=== PATIENT | male | born 1965 | race Caucasian/White ===

== ENCOUNTER 2023-07-05 07:30 | Inpatient (IN) ==
[2023-07-05] MEDS: NOZIN NASAL SANITIZER TP ONE (08:35)
[2023-07-05] MEDS: LR 1,000 ML IV 1,000 ML IV ONE (08:36)
[2023-07-05] MEDS: DUONEB 0.5 MG/3 MG (3 mL) NEB ONE (11:20)
[2023-07-05] MEDS: NS 1,000 ML IV 1,000 ML ONE (12:56)
[2023-07-05] MEDS: NEO-SYNEPHRINE INJ ONE (13:41)
[2023-07-05] MEDS: NS 100 ML IV 100 ML ONE (13:41)
[2023-07-05] MEDS: EPHEDRINE SULFATE INJ ONE (13:41)
[2023-07-05] MEDS: VERSED ONE ×2 (13:41)
[2023-07-05] MEDS: PEPCID 20 MG VIAL ONE (13:41)
[2023-07-05] MEDS: BRIDION ONE (13:41)
[2023-07-05] MEDS: ZOFRAN INJ 4 MG VIAL ONE (13:41)
[2023-07-05] MEDS: NS 500 ML IV 500 ML IV ONE ×3 (13:41→14:09)
[2023-07-05] MEDS: DIPRIVAN VIAL 20 ML ONE (13:41)
[2023-07-05] MEDS ORDERED: SUPRANE ONE (13:41)
[2023-07-05] MEDS: ANCEF VIAL 1 GRAM ONE (13:41)
[2023-07-05] MEDS: SUPRANE ONE (13:41)
[2023-07-05] MEDS: ZEMURON 100 MG VIAL ONE (13:41)
[2023-07-05] MEDS ORDERED: XYLOCAINE 2 % (PLAIN) ONE (13:41)
[2023-07-05] MEDS: FENTANYL VIAL INJ 100 mcg ONE ×3 (13:41→14:12)
[2023-07-05] MEDS ORDERED: NS IRRIGATION* 500 ML IR ONE (14:08)
[2023-07-05] MEDS: HEPARIN SODIUM INJ 5000 UNITS ONE ×2 (14:09→14:44)
[2023-07-05] MEDS: ROBINUL ONE (14:21)
[2023-07-05] MEDS: PROTAMINE SULFATE 50 MG VIAL ONE (15:30)
[2023-07-05] MEDS: DILAUDID INJ ONE ×2 (16:09→16:57)
[2023-07-05] MEDS: DILAUDID INJ IVP PRN ×2 (16:14→20:38)
[2023-07-05] MEDS ORDERED: PERCOCET TAB 5/325 MG PO PRN (16:15)
--- NOTE | 2023-07-05 16:15 | OR.IMMED ---
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 Post Hospital Plans and Medications: Continue all home meds including Brilinta and aspirin.
[2023-07-05] MEDS ORDERED: ZOFRAN INJ 4 MG VIAL IVP PRN (16:24)
[2023-07-05] MEDS ORDERED: BENADRYL INJ 50 MG VIAL IVP PRN (16:24)
[2023-07-05] MEDS ORDERED: BARHEMSYS INJ IVP PRN (16:24)
[2023-07-05] MEDS ORDERED: REGLAN INJ 10 MG VIAL IVP PRN (16:24)
[2023-07-05] MEDS: DILAUDID INJ IVP ONE (16:56)
[2023-07-05] MEDS ORDERED: LR 1,000 ML IV 1,000 ML IV ONE (16:57)
[2023-07-05] MEDS ORDERED: OFIRMEV IV 1000 MG VIAL 1,000 MG/100 ML VIAL IV ONE (17:45)
[2023-07-05] MEDS: TYLENOL 325 MG TAB PO ONE ×2 (17:47→18:08)
[2023-07-05] MEDS: OFIRMEV IV 1000 MG VIAL 1,000 MG/100 ML VIAL IV PRN (17:48)
[2023-07-05] MEDS: LR 1,000 ML IV 1,000 ML IV SCH (18:06)
[2023-07-05] MEDS: NEURONTIN CAP 400 MG PO SCH (18:07)
[2023-07-05] MEDS: LOPRESSOR TAB 50 MG PO SCH (20:19)
[2023-07-05] MEDS: BRILINTA PO SCH (20:19)
[2023-07-05] MEDS: BENTYL CAP 10 MG PO SCH (20:19)
[2023-07-05] MEDS: PROVENTIL NEB TX 0.083% 2.5MG/ 3ML NEB SCH (20:50)
[2023-07-06] MEDS: ATIVAN INJ 2 MG VIAL IVP ONE (04:06)
[2023-07-06] MEDS: PROVENTIL NEB TX 0.083% 2.5MG/ 3ML ONE (07:21)
[2023-07-06] MEDS ORDERED: ATIVAN 20 MG/10 ML VIAL IVP PRN (07:35)
[2023-07-06] MEDS: ATIVAN INJ 2 MG VIAL IVP PRN (08:01)
[2023-07-06] MEDS: PHARMACY CONSULT - LOVENOX XX SCH (08:01)
[2023-07-06 08:16] LABS: RED BLOOD COUNT 4.13 X10^6/uL (4.7-6.0); RED CELL DISTRIBUTION WIDTH 13.9 % (11.6-16.5)
[2023-07-06 08:19] LABS: BASOPHILS # (AUTO) 0.1 X10^3/uL (0.0-0.1); BASOPHILS % (AUTO) 0.8 % (0.2-1.0); EOSINOPHILS # (AUTO) 0.1 x10^3/uL (0.0-0.2); EOSINOPHILS % (AUTO) 0.8 % (0.9-2.9); HEMATOCRIT 35.9 % (42.0-54.0); HEMOGLOBIN 12.1 g/dL (13.5-18.0); LYMPHOCYTES # (AUTO) 2.3 X10^3/uL (1.3-2.9); LYMPHOCYTES % (AUTO) 21.1 % (21.0-51.0); MEAN CORPUSCULAR HEMOGLOBIN 29.3 pg (27.0-34.0); MEAN CORPUSCULAR HGB CONC 33.7 g/dL (33.0-35.0); MEAN CORPUSCULAR VOLUME 86.8 fL (80.0-100.0); MEAN PLATELET VOLUME 10.6 fL (7.4-11.0); MONOCYTES # (AUTO) 1.2 x10^3/uL (0.3-0.8); MONOCYTES % (AUTO) 10.6 % (0.0-13.0); NEUTROPHILS # (AUTO) 7.2 x10^3/uL (2.2-4.8); NEUTROPHILS % (AUTO) 66.7 % (42.0-75.0); PLATELET COUNT 182 X10^3/uL (150.0-450.0); WHITE BLOOD COUNT 10.8 X10^3/uL (3.6-10.0)
[2023-07-06 08:29] LABS: ALANINE AMINOTRANSFERASE 28 Units/L (12-78); ALBUMIN 3.1 g/dL (3.4-5.0); ALKALINE PHOSPHATASE 96 Units/L (46-116); ASPARTATE AMINO TRANSFERASE 22 Units/L (15-37); BLOOD UREA NITROGEN 12 mg/dL (7-18); CALCIUM 8.4 mg/dL (8.5-10.1); CARBON DIOXIDE 28.9 mmol/L (21-32); CHLORIDE 101 mmol/L (98-107); COR CA(FOR HYPOALB) 9.1 mg/dL (8.5-10.1); COR NA(FOR HYPERGLY) 140 mmol/L (136-145); CREATININE 0.92 mg/dL (0.70-1.30); GLUCOSE 186 mg/dL (65-99); POTASSIUM 3.9 mmol/L (3.5-5.1); SODIUM 138 mmol/L (136-145); eGFR NON BLACK RACES > 60 (>60)
[2023-07-06] MEDS: LOVENOX INJ 40 MG SYR SC SCH (09:44)
[2023-07-06] MEDS: PROTONIX INJ 40 MG VIAL IVP SCH (09:45)
[2023-07-06] MEDS: LOPRESSOR INJ 5 MG AMP IVP SCH (09:45)
[2023-07-06] MEDS: LASIX IVP SCH (09:45)
--- NOTE | 2023-07-06 23:42 | NOTE.SOAP ---
Soap Note Note for Day of Date of Exam: 07/06/23 Subjective Data Subjective Data: POD #1 after right carotid endarterectomy . On Brillinta and aspirin. Had some bleeding into incision. Anxious , c/o difficulty swallowing Objective Data Pulse Rate: 116 Respiratory Rate: 22 Blood Pressure: 149/79 O2 Sat by Pulse Oximetry: 99 Objective Data: No neurological deficits . Mild ecchymosis in right neck Assessment Assessment: pod #1 right CEA with some mild bleeding and some difficulty swallowing . Plan Plan: Patient too anxious for swallowing test. Will re-evaluate in AM.
[2023-07-07] MEDS ORDERED: NovoLIN R (or HumuLIN R) SUBCUT PRN (15:45)
[2023-07-07] MEDS ORDERED: DEXTROSE 10% 1,000 ML IV PRN (15:45)
[2023-07-07] MEDS ORDERED: PHARMACY CONSULT - TPN XX SCH (16:00)
[2023-07-07] MEDS: DRUG FILTER EXTENSION SET ONE (16:31)
[2023-07-07] MEDS: CLINIMIX 4.25%-5% 1,000 ML with MVI INJ (ADULT) 10 ML IV SCH (16:31)
--- NOTE | 2023-07-07 17:44 | NOTE.SOAP ---
Soap Note Note for Day of Date of Exam: 07/07/23 Subjective Data Subjective Data: Through the day has felt less anxious. Swallowing better .Swallowing steady performed and results were excellent .Patient started on puree diet with plans to advance to soft mechanical diet in the morning Objective Data Pulse Rate: 110 Respiratory Rate: 16 Blood Pressure: 139/74 O2 Sat by Pulse Oximetry: 98 Objective Data: Swelling of neck subsiding . Anderson pulling eechymosis onto chest . Swallowing study as above . Hgb=12.1, Cr=0.92 Assessment Assessment: POD # 2 after right carotid endarterectomy, no neurolgical deficits . Started on PPN and puree diet . Plan Plan: As above. When swallowing better will d/c home
[2023-07-07] MEDS: PROVENTIL NEB TX 0.083% 2.5MG/ 3ML NEB SCH (21:15)
[2023-07-08 05:08] LABS: BASOPHILS % (AUTO) 0.5 % (0.2-1.0); EOSINOPHILS # (AUTO) 0.1 x10^3/uL (0.0-0.2); EOSINOPHILS % (AUTO) 1.8 % (0.9-2.9); HEMATOCRIT 29.3 % (42.0-54.0); LYMPHOCYTES # (AUTO) 1.2 X10^3/uL (1.3-2.9); LYMPHOCYTES % (AUTO) 15.1 % (21.0-51.0); MEAN CORPUSCULAR HEMOGLOBIN 29.6 pg (27.0-34.0); MEAN CORPUSCULAR HGB CONC 34.1 g/dL (33.0-35.0); MEAN CORPUSCULAR VOLUME 86.9 fL (80.0-100.0); MEAN PLATELET VOLUME 10.5 fL (7.4-11.0); MONOCYTES # (AUTO) 0.9 x10^3/uL (0.3-0.8); MONOCYTES % (AUTO) 11.5 % (0.0-13.0); NEUTROPHILS # (AUTO) 5.8 x10^3/uL (2.2-4.8); NEUTROPHILS % (AUTO) 71.1 % (42.0-75.0); PLATELET COUNT 164 X10^3/uL (150.0-450.0); RED BLOOD COUNT 3.38 X10^6/uL (4.7-6.0); RED CELL DISTRIBUTION WIDTH 13.3 % (11.6-16.5); WHITE BLOOD COUNT 8.2 X10^3/uL (3.6-10.0)
[2023-07-08 05:12] LABS: MAGNESIUM 1.5 mg/dL (2.0-2.9); PHOSPHORUS 2.9 mg/dL (2.6-4.7)
[2023-07-08 06:03] LABS: PREALBUMIN 15.2 mg/dL (18-35.7)
--- NOTE | 2023-07-08 14:07 | NOTE.SOAP ---
Soap Note Note for Day of Date of Exam: 07/08/23 Subjective Data Subjective Data: POD# 3 after right carotid endarterectomy with patch angioplasty. Had some bleeding in right neck incision as patient on Brillinta which could not be stopped. Hgb is stable at 10 grms . Has had difficulty swallowing which is slowly improving . Swallowing test OK. Placed on soft mechanical diet this AM. Less anxiety Objective Data Pulse Rate: 94 Respiratory Rate: 20 Blood Pressure: 108/61 O2 Sat by Pulse Oximetry: 96 Objective Data: Swelling of neck improved . Ecchymosis extending onto chest with gravity. HgB=10.0 Assessment Assessment: POD # 3 after left CEA with patch, no neurological deficits , difficulty swallowing improving as is hematoma right neck Plan Plan: as above , Continue PPN
[2023-07-08] MEDS: XYLOCAINE VISCOUS MT PRN (20:07)
[2023-07-09] MEDS: XYLOCAINE VISCOUS ONE (08:26)
[2023-07-09 08:34] VITALS: BMI 29.3
--- NOTE | 2023-07-09 17:23 | NOTE.SOAP ---
Soap Note Note for Day of Date of Exam: 07/09/23 Subjective Data Subjective Data: S/P right carotid endarterectomy with some right neck swelling and difficulty swallowing . Now tolerating a soft diet and will get him back on his po medications Objective Data Pulse Rate: 101 Respiratory Rate: 22 Blood Pressure: 117/65 Objective Data: Swelling right neck nearly resolved. Ecchymosis onto chest. Assessment Assessment: POD after right CEA , as above Plan Plan: Plan discharge home tomorrow.
[2023-07-09] MEDS: PERCOCET TAB 5/325 MG PO PRN (20:34)
[2023-07-09] MEDS: MIRALAX POWDER (1 DOSE 17 G) PO SCH (20:35)
[2023-07-09] MEDS: CITROMA PO ONE (20:36)
[2023-07-10] MEDS: PROTONIX TAB 40 MG PO SCH (08:46)
[2023-07-10] MEDS: LIPITOR TAB 40 MG PO SCH (08:46)
[2023-07-10] MEDS: ASPIRIN EC 81 MG PO SCH (08:46)
[2023-07-10] MEDS: HYDROCHLOROTHIAZIDE 25 MG TAB PO SCH (09:48)
--- NOTE | 2023-07-10 12:26 | DR.OPNOTE ---
OP NOTE Pre-Op Diagnosis: severe stenosis > 80 % right internal carotid artery Post-Op Diagnosis: same Procedure Date Date Of Procedure: 07/05/23 Procedure: PROCEDURE: RIGHT CAROTID ENDARTERECTOMY AND PATCH ANGIOPLASTY NARRATIVE: The patient was taken to the operative suite and placed in the supine position. General endotracheal anesthesia induced .The right neck was extended ,prepped and draped in sterile fashion .Timeout for the procedure obtained .Incision was made along the anterior border of the right sternocletomastoid muscle extended through the platysma muscle . The sternocletomastoid muscle retracted laterally and dissection carried down dividing the facial vein between ties of 3-0 silk .The carotid artery dissected and vessels placed around the common carotid artery ,the external carotid artery and the internal carotid artery above the plaque ,a 3-0 silk suture was placed as a tie around the superior thyroid artery . Patient was given 5,000 units of intravenous heparin and after 3 minutes all branches of the carotid artery were clamped .The common carotid artery opened with a number 11 knife blade and Pott's scissors through the plaque into normal internal carotid artery and a 12 [place] shunt placed distally and held in position with vessel loops and then proximally and held in position with vessel Loops. [place] dissector used to perform endarterectomy and the plaque divided in the common carotid artery and feathered into the internal carotid artery performing eversion endarterectomy of the external carotid artery removing all of the plaque .All floating material removed . The artery was then closed using an 8 millimeter wide bovine pericardial patch sewing it into position with running 5-0 Prolene suture. Before the patch was completely closed the shunt was removed and each branch of the arterey clamped or occluded with vessel loops .Closure of the patch completed. Clamp removed from the common carotid artery and the vessel loops were loosened from the external carotid artery and internal carotid artery in that order re- establishing flow. There was one area of leaking from the patch which was closed with a figure of 8 suture of 5-0 Prolene. Patient given 20 milligram of intravenous Protamine .Surgicel placed over the carotid artery and when bleeding from the suture line had stopped the area irrigated .Platysma closed with running 3-0 Vicryl suture .Skin closed with running 5-0 Vicryl suture in a subcuticular fashion and Silver based dressing appled to the incision . Patient extubated and had no neurological deficits .Patient taken to the recovery room prior to transfer to the ICU . Type of Anesthesia: General Anesthetic w/ETT Findings: as above Specimen/Pathology: carotid artery plaque Type of Fluids Used:: Lactated Ringers EBL: 150 cc Complications:: none Needle/Sponge Count:: correct Disposition/Condition: Pt. tolerated procedure without difficulty. Extubated in the OR and taken to PACU in stable condition.
[2023-07-10 12:28] VITALS: TEMP 97.4
[2023-07-10 16:03] VITALS: PULSE 79
--- NOTE | 2023-07-10 17:36 | W.DIS.FURT ---
Summary of Discharge Discharge Summary of Date Date of Exam: 07/10/23 Admission Date Date of Admission: 07/05/23 Admission Diagnosis Hospital Course: This is 58 year old male with known right carotid artery stenosis , greater than 80% stenosis of the right internal carotid artery and history of coronary artery disease. Patient underwent right carotid endarterectomy with patch angioplasty on July 05 2023 .Patient had recent coronary stents and was maintained on Brillinta and aspirin which was not stopped for surgery as planned. Patient developed swelling of the right neck which did not require repeat surgery. Initially the patient had difficulty swallowing.Swallowing studies were normal. Patient now swallowing a soft diet and all of his medications including pills .He will be discharged home today on his usual medications including the Brillinta and aspirin .He will be given a prescription for Percocet 5 milligram tablets, 1 every 6 hours PRN pain and he will follow up with me on July 18 . Vital Signs: Vital Signs (72 hours) 07/07/23 17:43 07/09/23 17:22 07/08/23 14:07 Temperature Pulse Rate 110 H 101 H 94 H Respiratory Rate 16 22 20 Blood Pressure 139/74 117/65 108/61 O2 Sat by Pulse Oximetry 98 96 Oxygen Delivery Method Oxygen Flow Rate FIO2% 07/07/23 18:00 07/07/23 18:00 07/07/23 19:00 Temperature Pulse Rate 111 H Respiratory Rate 16 Blood Pressure 133/78 O2 Sat by Pulse Oximetry 96 Oxygen Delivery Method Nasal Cannula Oxygen Flow Rate 2 FIO2% 07/07/23 19:00 07/07/23 19:09 07/07/23 19:09 Temperature Pulse Rate 107 H 110 H Respiratory Rate 16 16 Blood Pressure 129/58 O2 Sat by Pulse Oximetry 97 97 Oxygen Delivery Method Oxygen Flow Rate FIO2% 07/07/23 20:19 07/07/23 21:13 07/07/23 20:49 Temperature Pulse Rate Respiratory Rate 16 13 Blood Pressure 130/77 O2 Sat by Pulse Oximetry Oxygen Delivery Method Oxygen Flow Rate FIO2% 07/07/23 20:00 07/07/23 20:00 07/07/23 21:00 Temperature 99.3 F Pulse Rate 110 H 98 H Respiratory Rate 15 15 Blood Pressure 127/63 O2 Sat by Pulse Oximetry 98 97 Oxygen Delivery Method Oxygen Flow Rate FIO2% 07/07/23 21:00 07/07/23 22:00 07/07/23 22:00 Temperature Pulse Rate 88 Respiratory Rate 14 Blood Pressure 130/77 117/65 O2 Sat by Pulse Oximetry 97 Oxygen Delivery Method Oxygen Flow Rate FIO2% 07/07/23 23:00 07/07/23 23:00 07/08/23 00:00 Temperature 98.6 F Pulse Rate 95 H 92 H Respiratory Rate 13 15 Blood Pressure 119/58 O2 Sat by Pulse Oximetry 98 96 Oxygen Delivery Method Oxygen Flow Rate FIO2% 07/08/23 00:00 07/08/23 01:00 07/08/23 01:00 Temperature Pulse Rate 89 Respiratory Rate 14 Blood Pressure 123/60 118/57 O2 Sat by Pulse Oximetry 96 Oxygen Delivery Method Oxygen Flow Rate FIO2% 07/08/23 02:00 07/08/23 02:00 07/07/23 21:15 Temperature Pulse Rate 91 H Respiratory Rate 27 H Blood Pressure 124/57 O2 Sat by Pulse Oximetry 96 Oxygen Delivery Method Room Air Oxygen Flow Rate FIO2% 21 07/07/23 21:15 07/08/23 03:09 07/08/23 03:39 Temperature Pulse Rate 94 H Respiratory Rate 22 18 Blood Pressure O2 Sat by Pulse Oximetry 99 Oxygen Delivery Method Oxygen Flow Rate FIO2% 07/08/23 03:00 07/08/23 03:00 07/08/23 04:00 Temperature 98.5 F Pulse Rate 97 H Respiratory Rate 24 Blood Pressure 117/62 114/56 O2 Sat by Pulse Oximetry 93 L Oxygen Delivery Method Oxygen Flow Rate FIO2% 07/08/23 04:00 07/08/23 05:00 07/08/23 05:00 Temperature Pulse Rate 85 83 Respiratory Rate 13 13 Blood Pressure 114/66 O2 Sat by Pulse Oximetry 95 94 L Oxygen Delivery Method Oxygen Flow Rate FIO2% 07/08/23 06:00 07/08/23 06:00 07/08/23 08:27 Temperature Pulse Rate 78 Respiratory Rate 14 Blood Pressure 121/71 O2 Sat by Pulse Oximetry 96 Oxygen Delivery Method Room Air Oxygen Flow Rate FIO2% 07/08/23 08:27 07/08/23 08:27 07/08/23 08:27 Temperature Pulse Rate 100 H 102 H Respiratory Rate Blood Pressure O2 Sat by Pulse Oximetry 99 98 Oxygen Delivery Method Nasal Cannula Oxygen Flow Rate 2 FIO2% 21 07/08/23 07:00 07/08/23 07:00 07/08/23 07:00 Temperature Pulse Rate 89 Respiratory Rate 13 Blood Pressure 114/62 O2 Sat by Pulse Oximetry 97 Oxygen Delivery Method Nasal Cannula Oxygen Flow Rate 2 FIO2% 07/08/23 08:00 07/08/23 08:00 07/08/23 09:00 Temperature 98.2 F Pulse Rate 85 105 H Respiratory Rate 16 18 Blood Pressure 134/64 O2 Sat by Pulse Oximetry 96 95 Oxygen Delivery Method Oxygen Flow Rate FIO2% 07/08/23 09:01 07/08/23 09:01 07/08/23 10:00 Temperature Pulse Rate 105 H Respiratory Rate 20 Blood Pressure 149/70 154/81 O2 Sat by Pulse Oximetry 97 Oxygen Delivery Method Oxygen Flow Rate FIO2% 07/08/23 10:00 07/08/23 11:00 07/08/23 11:00 Temperature Pulse Rate 87 100 H Respiratory Rate 25 H 14 Blood Pressure 104/58 O2 Sat by Pulse Oximetry 97 98 Oxygen Delivery Method Oxygen Flow Rate FIO2% 07/08/23 12:00 07/08/23 12:00 07/08/23 13:00 Temperature Pulse Rate 94 H Respiratory Rate 20 Blood Pressure 108/61 116/72 O2 Sat by Pulse Oximetry 96 Oxygen Delivery Method Oxygen Flow Rate FIO2% 07/08/23 13:00 07/08/23 13:00 07/08/23 14:00 Temperature Pulse Rate 101 H Respiratory Rate 15 Blood Pressure 116/72 133/65 O2 Sat by Pulse Oximetry 99 Oxygen Delivery Method Oxygen Flow Rate FIO2% 07/08/23 14:00 07/08/23 15:00 07/08/23 15:00 Temperature Pulse Rate 106 H 97 H Respiratory Rate 20 14 Blood Pressure 116/66 O2 Sat by Pulse Oximetry 98 95 Oxygen Delivery Method Oxygen Flow Rate FIO2% 07/08/23 16:00 07/08/23 16:08 07/08/23 16:08 Temperature Pulse Rate 109 H 102 H Respiratory Rate 10 L 9 L Blood Pressure 119/71 O2 Sat by Pulse Oximetry 99 98 Oxygen Delivery Method Oxygen Flow Rate FIO2% 07/08/23 17:00 07/08/23 17:00 07/08/23 18:00 Temperature 98.3 F Pulse Rate 115 H 116 H Respiratory Rate 17 31 H Blood Pressure 128/73 O2 Sat by Pulse Oximetry 98 94 L Oxygen Delivery Method Oxygen Flow Rate FIO2% 07/08/23 18:00 07/08/23 19:00 07/08/23 19:00 Temperature Pulse Rate 112 H Respiratory Rate 16 Blood Pressure 119/57 O2 Sat by Pulse Oximetry 97 Oxygen Delivery Method Nasal Cannula Oxygen Flow Rate 2 FIO2% 07/08/23 19:00 07/08/23 20:00 07/08/23 20:01 Temperature Pulse Rate 117 H Respiratory Rate 21 Blood Pressure 122/69 125/60 O2 Sat by Pulse Oximetry 97 Oxygen Delivery Method Oxygen Flow Rate FIO2% 07/08/23 20:01 07/08/23 20:26 07/08/23 21:00 Temperature 99.3 F Pulse Rate 129 H Respiratory Rate 33 H Blood Pressure 116/71 O2 Sat by Pulse Oximetry 97 Oxygen Delivery Method Room Air Oxygen Flow Rate FIO2% 07/08/23 21:00 07/08/23 21:23 07/08/23 22:00 Temperature Pulse Rate 103 H Respiratory Rate 6 L Blood Pressure 122/80 115/69 O2 Sat by Pulse Oximetry 96 Oxygen Delivery Method Oxygen Flow Rate FIO2% 07/08/23 22:00 07/08/23 23:00 07/08/23 23:00 Temperature Pulse Rate 101 H 106 H Respiratory Rate 34 H 20 Blood Pressure 126/76 O2 Sat by Pulse Oximetry 97 99 Oxygen Delivery Method Oxygen Flow Rate FIO2% 07/09/23 00:00 07/09/23 00:00 07/09/23 01:00 Temperature 98.7 F Pulse Rate 99 H Respiratory Rate 24 Blood Pressure 115/73 115/59 O2 Sat by Pulse Oximetry 94 L Oxygen Delivery Method Oxygen Flow Rate FIO2% 07/09/23 01:00 07/09/23 02:00 07/09/23 02:00 Temperature Pulse Rate 101 H 101 H Respiratory Rate Blood Pressure 130/72 O2 Sat by Pulse Oximetry 95 95 Oxygen Delivery Method Oxygen Flow Rate FIO2% 07/09/23 03:00 07/09/23 03:00 07/09/23 04:06 Temperature Pulse Rate 97 H Respiratory Rate 22 Blood Pressure 130/66 O2 Sat by Pulse Oximetry 95 Oxygen Delivery Method Oxygen Flow Rate FIO2% 07/09/23 04:00 07/09/23 04:00 07/09/23 05:00 Temperature 98.5 F Pulse Rate 92 H Respiratory Rate Blood Pressure 126/59 126/77 O2 Sat by Pulse Oximetry 92 L Oxygen Delivery Method Oxygen Flow Rate FIO2% 07/09/23 05:00 07/09/23 04:36 07/09/23 05:00 Temperature Pulse Rate 97 H Respiratory Rate 24 14 Blood Pressure 126/77 O2 Sat by Pulse Oximetry 94 L Oxygen Delivery Method Oxygen Flow Rate FIO2% 07/09/23 06:00 07/09/23 06:00 07/09/23 07:00 Temperature Pulse Rate 128 H Respiratory Rate 26 H Blood Pressure 139/94 O2 Sat by Pulse Oximetry 96 Oxygen Delivery Method Nasal Cannula Oxygen Flow Rate 2 FIO2% 07/09/23 07:00 07/09/23 07:01 07/09/23 07:01 Temperature Pulse Rate 102 H 114 H Respiratory Rate 18 35 H Blood Pressure 128/71 O2 Sat by Pulse Oximetry 96 98 Oxygen Delivery Method Oxygen Flow Rate FIO2% 07/09/23 08:00 07/09/23 08:00 07/09/23 08:44 Temperature Pulse Rate 105 H Respiratory Rate 17 Blood Pressure 140/91 O2 Sat by Pulse Oximetry 87 L Oxygen Delivery Method Nasal Cannula Oxygen Flow Rate 2 FIO2% 28 07/09/23 08:45 07/09/23 09:00 07/09/23 09:00 Temperature Pulse Rate 93 H 95 H Respiratory Rate 13 Blood Pressure 147/78 O2 Sat by Pulse Oximetry 96 94 L Oxygen Delivery Method Oxygen Flow Rate FIO2% 07/09/23 09:06 07/09/23 10:00 07/09/23 10:04 Temperature Pulse Rate 98 H Respiratory Rate 20 21 Blood Pressure 133/74 O2 Sat by Pulse Oximetry 96 Oxygen Delivery Method Oxygen Flow Rate FIO2% 07/09/23 10:04 07/09/23 11:00 07/09/23 11:03 Temperature Pulse Rate 101 H 89 91 H Respiratory Rate 31 H 16 20 Blood Pressure O2 Sat by Pulse Oximetry 96 92 L 95 Oxygen Delivery Method Oxygen Flow Rate FIO2% 07/09/23 11:03 07/09/23 09:36 07/09/23 12:00 Temperature Pulse Rate 102 H Respiratory Rate 14 13 Blood Pressure 122/70 O2 Sat by Pulse Oximetry 91 L Oxygen Delivery Method Oxygen Flow Rate FIO2% 07/09/23 12:00 07/09/23 13:00 07/09/23 13:00 Temperature Pulse Rate 108 H Respiratory Rate 29 H Blood Pressure 122/65 120/73 O2 Sat by Pulse Oximetry 95 Oxygen Delivery Method Oxygen Flow Rate FIO2% 07/09/23 14:00 07/09/23 14:00 07/09/23 15:00 Temperature Pulse Rate 104 H Respiratory Rate 25 H Blood Pressure 115/68 116/60 O2 Sat by Pulse Oximetry Oxygen Delivery Method Oxygen Flow Rate FIO2% 07/09/23 15:00 07/09/23 15:00 07/09/23 16:00 Temperature Pulse Rate 94 H Respiratory Rate 17 Blood Pressure 116/60 115/62 O2 Sat by Pulse Oximetry Oxygen Delivery Method Oxygen Flow Rate FIO2% 07/09/23 16:00 07/09/23 17:00 07/09/23 17:00 Temperature Pulse Rate 89 101 H Respiratory Rate 15 22 Blood Pressure 117/65 O2 Sat by Pulse Oximetry Oxygen Delivery Method Oxygen Flow Rate FIO2% 07/09/23 18:00 07/09/23 18:00 07/09/23 19:00 Temperature Pulse Rate 113 H Respiratory Rate 18 Blood Pressure 117/74 O2 Sat by Pulse Oximetry 98 Oxygen Delivery Method Nasal Cannula Oxygen Flow Rate 2 FIO2% 07/09/23 19:00 07/09/23 19:00 07/09/23 20:21 Temperature Pulse Rate 107 H Respiratory Rate 19 Blood Pressure 124/71 O2 Sat by Pulse Oximetry 96 Oxygen Delivery Method Room Air Oxygen Flow Rate FIO2% 07/09/23 20:34 07/09/23 20:00 07/09/23 20:00 Temperature Pulse Rate 104 H Respiratory Rate 20 17 Blood Pressure 106/69 O2 Sat by Pulse Oximetry 97 Oxygen Delivery Method Oxygen Flow Rate FIO2% 07/09/23 21:00 07/09/23 21:00 07/09/23 21:34 Temperature Pulse Rate 96 H Respiratory Rate 24 19 Blood Pressure 113/84 O2 Sat by Pulse Oximetry 98 Oxygen Delivery Method Oxygen Flow Rate FIO2% 07/09/23 22:00 07/09/23 22:00 07/09/23 23:00 Temperature Pulse Rate 69 90 Respiratory Rate 16 Blood Pressure 114/68 O2 Sat by Pulse Oximetry 96 99 Oxygen Delivery Method Oxygen Flow Rate FIO2% 07/09/23 23:16 07/09/23 23:16 07/10/23 00:00 Temperature Pulse Rate 79 Respiratory Rate 31 H Blood Pressure 127/77 119/61 O2 Sat by Pulse Oximetry 98 Oxygen Delivery Method Oxygen Flow Rate FIO2% 07/10/23 00:00 07/10/23 01:00 07/10/23 01:00 Temperature Pulse Rate 65 84 Respiratory Rate 16 19 Blood Pressure 120/84 O2 Sat by Pulse Oximetry 97 Oxygen Delivery Method Oxygen Flow Rate FIO2% 07/10/23 02:00 07/10/23 02:00 07/10/23 03:00 Temperature Pulse Rate 70 Respiratory Rate 16 Blood Pressure 110/64 122/63 O2 Sat by Pulse Oximetry 97 Oxygen Delivery Method Oxygen Flow Rate FIO2% 07/10/23 03:00 07/10/23 04:00 07/10/23 04:01 Temperature Pulse Rate 74 78 Respiratory Rate 22 26 H Blood Pressure 145/69 O2 Sat by Pulse Oximetry 96 Oxygen Delivery Method Oxygen Flow Rate FIO2% 07/10/23 04:01 07/10/23 05:00 07/10/23 05:01 Temperature 98.5 F Pulse Rate 83 91 H Respiratory Rate 42 H 35 H Blood Pressure 122/58 O2 Sat by Pulse Oximetry 99 Oxygen Delivery Method Oxygen Flow Rate FIO2% 07/10/23 05:01 07/10/23 06:00 07/10/23 06:00 Temperature Pulse Rate 78 73 Respiratory Rate 18 21 Blood Pressure 112/59 O2 Sat by Pulse Oximetry 100 98 Oxygen Delivery Method Oxygen Flow Rate FIO2% 07/10/23 07:00 07/10/23 07:00 07/10/23 08:56 Temperature Pulse Rate 75 87 Respiratory Rate 12 Blood Pressure 108/56 O2 Sat by Pulse Oximetry 97 97 Oxygen Delivery Method Oxygen Flow Rate FIO2% 07/10/23 08:58 07/10/23 07:00 07/10/23 08:00 Temperature 97.5 F L Pulse Rate 63 Respiratory Rate 15 Blood Pressure O2 Sat by Pulse Oximetry 97 Oxygen Delivery Method Room Air Nasal Cannula Oxygen Flow Rate 2 FIO2% 21 07/10/23 08:01 07/10/23 08:01 07/10/23 09:00 Temperature Pulse Rate 64 73 Respiratory Rate 14 10 L Blood Pressure 117/61 O2 Sat by Pulse Oximetry 97 Oxygen Delivery Method Oxygen Flow Rate FIO2% 07/10/23 09:18 07/10/23 09:17 07/10/23 09:17 Temperature Pulse Rate 87 Respiratory Rate 18 Blood Pressure 132/92 132/92 O2 Sat by Pulse Oximetry 95 Oxygen Delivery Method Oxygen Flow Rate FIO2% 07/10/23 10:00 07/10/23 10:01 07/10/23 10:01 Temperature Pulse Rate 68 67 Respiratory Rate 13 15 Blood Pressure 112/59 O2 Sat by Pulse Oximetry 92 L 92 L Oxygen Delivery Method Oxygen Flow Rate FIO2% 07/10/23 11:00 07/10/23 11:00 07/10/23 12:00 Temperature 97.4 F L Pulse Rate 61 58 L Respiratory Rate 13 11 L Blood Pressure 120/68 O2 Sat by Pulse Oximetry 95 97 Oxygen Delivery Method Oxygen Flow Rate FIO2% 07/10/23 12:00 07/10/23 13:00 07/10/23 13:00 Temperature Pulse Rate 78 Respiratory Rate 21 Blood Pressure 105/66 101/59 O2 Sat by Pulse Oximetry 96 Oxygen Delivery Method Oxygen Flow Rate FIO2% 07/10/23 13:14 07/10/23 14:00 07/10/23 14:00 Temperature Pulse Rate 82 88 Respiratory Rate 28 H Blood Pressure 95/64 O2 Sat by Pulse Oximetry 97 97 Oxygen Delivery Method Oxygen Flow Rate FIO2% 07/10/23 15:00 07/10/23 15:01 07/10/23 15:01 Temperature Pulse Rate 79 88 Respiratory Rate 22 22 Blood Pressure 109/57 O2 Sat by Pulse Oximetry 95 93 L Oxygen Delivery Method Oxygen Flow Rate FIO2% 07/10/23 16:00 07/10/23 16:00 Temperature Pulse Rate 79 Respiratory Rate 18 Blood Pressure 109/64 O2 Sat by Pulse Oximetry 98 Oxygen Delivery Method Oxygen Flow Rate FIO2% Labs: Laboratory Last Values WBC 8.2 X10^3/uL (3.6-10.0) 07/08/23 04:48 RBC 3.38 X10^6/uL (4.7-6.0) L 07/08/23 04:48 Hgb 10.0 g/dL (13.5-18.0) L D 07/08/23 04:48 Hct 29.3 % (42.0-54.0) L 07/08/23 04:48 MCV 86.9 fL (80.0-100.0) 07/08/23 04:48 MCH 29.6 pg (27.0-34.0) 07/08/23 04:48 MCHC 34.1 g/dL (33.0-35.0) 07/08/23 04:48 RDW 13.3 % (11.6-16.5) 07/08/23 04:48 Plt Count 164 X10^3/uL (150.0-450.0) 07/08/23 04:48 MPV 10.5 fL (7.4-11.0) 07/08/23 04:48 Neut % (Auto) 71.1 % (42.0-75.0) 07/08/23 04:48 Lymph % (Auto) 15.1 % (21.0-51.0) L 07/08/23 04:48 [place] % (Auto) 11.5 % (0.0-13.0) 07/08/23 04:48 Eos % (Auto) 1.8 % (0.9-2.9) 07/08/23 04:48 Baso % (Auto) 0.5 % (0.2-1.0) 07/08/23 04:48 Neut # (Auto) 5.8 x10^3/uL (2.2-4.8) H 07/08/23 04:48 Lymph # (Auto) 1.2 X10^3/uL (1.3-2.9) L 07/08/23 04:48 [place] # (Auto) 0.9 x10^3/uL (0.3-0.8) H 07/08/23 04:48 Eos # (Auto) 0.1 x10^3/uL (0.0-0.2) 07/08/23 04:48 Baso # (Auto) 0.0 X10^3/uL (0.0-0.1) 07/08/23 04:48 Absolute Nucleated RBC 0.0 /100WBC 07/08/23 04:48 Sodium 138 mmol/L (136-145) 07/06/23 07:55 Corrected Sodium 140 mmol/L (136-145) 07/06/23 07:55 Potassium 3.9 mmol/L (3.5-5.1) 07/06/23 07:55 Chloride 101 mmol/L (98-107) 07/06/23 07:55 Carbon Dioxide 28.9 mmol/L (21-32) 07/06/23 07:55 BUN 12 mg/dL (7-18) 07/06/23 07:55 Creatinine 0.92 mg/dL (0.70-1.30) 07/06/23 07:55 Est GFR (MDRD) Af Amer > 60 (>60) 07/06/23 07:55 Est GFR (MDRD) Non-Af > 60 (>60) 07/06/23 07:55 Glucose 186 mg/dL (65-99) H 07/06/23 07:55 POC Glucose (mg/dL) 238 mg/dL (65-99) H 07/08/23 12:54 Calcium 8.4 mg/dL (8.5-10.1) L 07/06/23 07:55 Corrected Calcium 9.1 mg/dL (8.5-10.1) 07/06/23 07:55 Phosphorus Cancelled 07/10/23 04:29 Magnesium 1.8 mg/dL (2.0-2.9) L 07/10/23 04:29 Total Bilirubin 0.60 mg/dL (0.2-1.0) 07/06/23 07:55 AST 22 Units/L (15-37) 07/06/23 07:55 ALT 28 Units/L (12-78) 07/06/23 07:55 Alkaline Phosphatase 96 Units/L (46-116) 07/06/23 07:55 Total Protein 7.0 g/dL (6.4-8.2) 07/06/23 07:55 Albumin 3.1 g/dL (3.4-5.0) L 07/06/23 07:55 Globulin 3.9 g/dL (2.5-4.5) 07/06/23 07:55 Albumin/Globulin Ratio 0.8 Ratio (1.1-2.1) L 07/06/23 07:55 Prealbumin 15.2 mg/dL (18-35.7) L 07/08/23 04:48 Triglycerides Cancelled 07/10/23 04:29 Tissue Pathology See comment. 07/05/23 15:00 Reason For Visit: ENDARTERECTOMY ANGIOPLASTY Discharge Date Discharge Date: 07/10/23 Discharge Diagnosis All Active Problems (Updated 06/06/23 @ 13:44 by SARAH SANTORO) Carotid arterial disease (Acute) CAD (coronary artery disease) (Acute) Carotid bruit (Acute) High risk of cardiac event (Acute) FERNANDEZ (dyspnea on exertion) (Acute) PVD (peripheral vascular disease) (Acute) Low testosterone (Acute) Plan of Treatment: Continue with present treatment and follow up plan. Pt is to keep follow up appointment as instructed and take medications as ordered. Discharge Medications Discharge Medications: No Known Allergies Allergy (Verified 04/28/23 10:50) CONTINUE taking the following medications azelastine 205.5 mcg (0.15 %) nasal spray (Astepro Allergy) 2 spray intranasal QDAY 07/05/23 [History] Brillinta 1 po daily aspirin 81 mg po daily Percocet 5mg 1 po q 6hr PRN pain Discharge Disposition Assessment: see hospital course Discharge Plan Discharge Plan Hospital Course: This is 58 year old male with known right carotid artery stenosis , greater than 80% stenosis of the right internal carotid artery and history of coronary a rtery disease. Patient underwent right carotid endarterectomy with patch angioplasty on July 05 2023 .Patient had recent coronary stents and was maintained on Brillinta and aspirin which was not stopped for surgery as planned. Patient developed swelling of the right neck which did not require repeat surgery. Initially the patient had difficulty swallowing.Swallowing studies were normal. Patient now swallowing a soft diet and all of his medications including pills .He will be discharged home today on his usual medications including the Brillinta and aspirin .He will be given a presc ription for Percocet 5 milligram tablets, 1 every 6 hours PRN pain and he will follow up with me on July 18 . Patient Disposition: 01 HOME, SELF-CARE Condition: Stable Health Concerns: Post Hospitalization: new medications and changes needed to prevent readmission or further decline. Pt educated and given instructions on all concerns. Care Plan Goals: Problem: Pain/Alteration in Comfort Goal: Improve/ Resolve Pain; Achieve Pain Tolerance Instructions: Take pain medications as prescribed. Contact your primary care provider if your pain is unrelieved or worsens. Follow up with primary care provider as directed. Plan of Treatment: Continue with present treatment and follow up plan. Pt is to keep follow up appointment as instructed and take medications as ordered. Assessment: see hospital course Prescriptions: New oxycodone-acetaminophen [Percocet] 5-325 mg tablet 1 tab PO Q6H MDD 4 PRNQty: 30 0RF Continued atorvastatin 40 mg tablet 40 mg PO QDAY Qty: 90 3RF pantoprazole 40 mg tablet,delayed release (DR/EC) 40 mg PO QDAY gabapentin 400 mg capsule 400 mg PO BID Breztri Aerosphere 160-9-4.8 mcg/actuation HFA aerosol inhaler 2 inh inhalation BID hydrochlorothiazide 25 mg tablet 25 mg PO QDAY metoprolol tartrate 50 mg tablet 50 mg PO BID hydrocodone-acetaminophen 10-325 mg tablet 1 tab PO Q6HR aspirin 81 mg tablet,delayed release (DR/EC) 81 mg PO QDAY dicyclomine 10 mg capsule 10 mg PO QID Qty: 120 0RF testosterone cypionate [Depo-Testosterone] 200 mg/mL oil 200 mg IM Q4W MDD 1 cc im q month 30 Days Qty: 2 3RF famotidine 10 mg tablet 20 mg PO QDAY Brilinta 90 mg tablet 90 mg PO BID azelastine [Astepro Allergy] 205.5 mcg (0.15 %) [place],Non-Aerosol 2 spray INTRANASAL QDAY Rx Instructions: administer into each nostril Follow ups/Referrals Follow ups/Referrals: OUSMANE QUEVEDO [STAFF PHYSICIAN] - 1 WEEK Ezequiel Escoto [STAFF PHYSICIAN] - 1 WEEK Instructions Stand Alone Forms: Excuse From Work or School, Post Hospital Follow Up Care
[2023-07-10 17:38] VITALS: BP 115/72; RESP 20; O2SAT 95
== END 2023-07-10 18:20 | disposition home or self-care (01) | DRG 983 ==
LOC: ICU 08:20
PROVIDERS: ADMIT Surgery; ATTEND Surgery
DX: R13.11 Dysphagia, oral phase; I65.21 Occlusion and stenosis of right carotid artery